=== PATIENT | male | born 1960 | race Caucasian/White ===

== ENCOUNTER 2016-11-16 07:57 | Day surgery (SDC) | payer OTHER ==
[2016-11-16 08:40] VITALS: BMI 20.2
[2016-11-16] MEDS ORDERED: Propofol 10 mg/ml Inj (20 ML) ONE (10:31)
[2016-11-16] MEDS ORDERED: Lidocaine Hydrochloride 5 ML INJ ONE (10:41)
[2016-11-16 11:28] VITALS: TEMP 99.2
[2016-11-16 11:38] VITALS: O2SAT 99
[2016-11-16 11:42] VITALS: BP 106/65; PULSE 65; RESP 15
== END 2016-11-16 11:51 | disposition home or self-care (01) ==
LOC: C.ENDO 07:57
PROVIDERS: ATTEND Internal Medicine Gastroenterology
DX: K63.3 Ulcer of intestine (principal); K64.8 Other hemorrhoids; K31.9 Disease of stomach and duodenum, unspecified; Z87.19 Personal history of other diseases of the digestive system; Z87.11 Personal history of peptic ulcer disease

== ENCOUNTER 2018-10-01 07:45 | Outpatient (CLI) | payer OTHER | END 2018-10-01 07:46 | disposition home or self-care (01) | LOC: C.RADH 07:45 | DX: M25.511 Pain in right shoulder (principal) ==

== ENCOUNTER 2018-10-21 07:17 | Emergency (ER) | payer OTHER ==
[2018-10-21 07:17] VITALS: BMI 21.9
[2018-10-21 07:50] VITALS: RESP 18
--- NOTE | 2018-10-21 07:57 | C.PDOC ---
History Of Present Illness 58 y/o male pt presents to the ER c/o persistent subjective fever for x5 days. Associated sx includes non-productive cough, chills and myalgia. Pt reports he saw his PMD and was given 500 mg amoxicillin TID x3 days with no relief. Pt denies dyspnea on exertion, chest pain, SOB and smoking. PERSIST SUBJ FEVER, COUGH X 5 DAYS. IMPROVES W TYLENOL 650 BUT RECURS. +CHILLS, MYALGIA. 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 SAW PMD, ON AMOXIL 500 TID X 3 DAYS BUT NO IMPROVE. NO JIMENEZ/CP, SOB. DENIES SMOKING EXAM NONTOXIC NARD LUNGS OCC RHONCHI SPEAKING FULL SENTENCES, NO RETRACT CV RRR REMAINDER NEG Time Seen by Provider: 10/21/18 07:26 History Per: Patient History/Exam Limitations: no limitations Onset/Duration Of Symptoms: Days (x5) Current Symptoms Are (Timing): Still Present Past Medical History Reviewed: Historical Data, Nursing Documentation, Vital Signs Vital Signs: Last Vital Signs Temp 99.4 F 10/21/18 07:46 Pulse 91 H 10/21/18 07:46 Resp 18 10/21/18 07:46 BP Pulse Ox 99 10/21/18 07:46 - Medical History PMH: Arthritis (BACK), Asthma, Bronchitis, Gastritis, Hypercholesterolemia Surgical History: Endoscopy Family History: States: No Known Family Hx - Social History Hx Alcohol Use: No Hx Substance Use: No - Immunization History Hx Tetanus Toxoid Vaccination: No Hx Influenza Vaccination: No Hx Pneumococcal Vaccination: No Review Of Systems Except As Marked, All Systems Reviewed And Found Negative. Constitutional: Positive for: Fever (subjective), Chills Cardiovascular: Negative for: Chest Pain Respiratory: Positive for: Cough (non-productive ). Negative for: Shortness of Breath, SOB with Excertion Musculoskeletal: Positive for: Other (myalgia) Physical Exam - Physical Exam Appears: Non-toxic, No Acute Distress Skin: Warm, Dry Head: Atraumatic, Normacephalic Eye(s): bilateral: Normal Inspection Nose: Normal Oral Mucosa: Moist Throat: Normal Cardiovascular: Rhythm Regular Respiratory: Rhonchi (occasional), Other (speaking in full sentences; no retr actions ) Gastrointestinal/Abdominal: Soft, No Tenderness Back: No CVA Tenderness Extremity: Normal ROM (x4) Neurological/Psych: Oriented x3, Normal Speech ED Course And Treatment - Laboratory Results Result Diagrams: 10/21/18 08:04 10/21/18 08:04 O2 Sat by Pulse Oximetry: 99 (RA) Pulse Ox Interpretation: Normal - Radiology CXR: Interpreted by Me CXR Interpretation: Yes: No Acute Disease Progress Note: Plans: -- chem labs. -- blood work. -- CXR. -- Tamiflu. -- IV fluids Progress - Data Reviewed Data Reviewed: Lab, Diagnostic imaging Disposition Counseled Patient/Family Regarding: Studies Performed, Diagnosis, Need For Followup, Rx Given - Disposition Referrals: YOUR,PMD [Other] Disposition: HOME/ ROUTINE Disposition Time: 09:30 Condition: IMPROVED Prescriptions: Oseltamivir Cap [Tamiflu] 75 mg PO BID #10 cap Instructions: Flu, Adult (DC) Forms: Work Excuse - Clinical Impression Clinical Impression: Influenza, Upper respiratory infection - Scribe Statement The provider has reviewed the documentation as recorded by the Scribe Isabelle Gomez Provider Attestation: All medical record entries made by the Scribe were at my direction and personally dictated by me. I have reviewed the chart and agree that the record accurately reflects my personal performance of the history, physical exam, medical decision making, and the department course for this patient. I have also personally directed, reviewed, and agree with the discharge instructions and disposition.
[2018-10-21 08:09] LABS: BASO % 1.1 % (0.0-2.0); EOS # 0.3 K/uL (0.0-0.7); EOS % 6.2 % (0.0-4.0); HEMOGLOBIN 13.5 g/dL (12.0-18.0); LYMPH # 1.1 K/uL (1.0-4.3); LYMPH % 26.8 % (20.0-40.0); MEAN CORPUSCULAR HEMOGLOBIN 28.8 pg (27.0-31.0); MEAN CORPUSCULAR HGB CONC 33.1 g/dL (33.0-37.0); MONO # 0.5 K/uL (0.0-0.8); NEUT # 2.3 K/uL (1.8-7.0); NEUT % 54.9 % (50.0-75.0); RBC 4.7 Mil/uL (4.40-5.90); RED CELL DISTRIBUTION WIDTH 13.9 % (11.5-14.5); WHITE BLOOD COUNT 4.2 K/uL (4.8-10.8)
[2018-10-21 08:21] LABS: MEAN CELL VOLUME 86.9 fL (80.0-94.0)
[2018-10-21 08:22] LABS: BLOOD UREA NITROGEN 16 mg/dL (9-20); CALCIUM 8.6 mg/dl (8.6-10.4); GFR NON-AFRICAN AMERICAN > 60
[2018-10-21] MEDS ORDERED: Sodium Chloride 0.9% 1,000 ML IV ONE (08:25)
[2018-10-21] MEDS ORDERED: Sodium Chloride 0.9% 500 ML IV ONE ×3 (08:34→08:36)
--- NOTE | 2018-10-21 08:48 | RAD ---
HISTORY: COUGH COMPARISON: None available. TECHNIQUE: Chest PA and lateral FINDINGS: LUNGS: No focal consolidation. Please note that chest x-ray has limited sensitivity for the detection of pulmonary masses. PLEURA: No significant pleural effusion identified. No definite pneumothorax . CARDIOVASCULAR: Heart size appears within normal limits. Atherosclerotic calcifications present. OSSEOUS STRUCTURES: Mild degenerative changes in wedge-shaped deformities noted of the thoracic spine. Kyphosis. VISUALIZED UPPER ABDOMEN: Unremarkable. OTHER FINDINGS: None. IMPRESSION: No focal consolidation.
[2018-10-21 08:53] VITALS: BP 122/76; PULSE 81; TEMP 100.1
[2018-10-21 09:33] VITALS: O2SAT 99
== END 2018-10-21 09:25 | disposition home or self-care (01) ==
LOC: C.ER 07:17
DX: J11.1 Influenza due to unidentified influenza virus with other respiratory manifestations (principal)
CPT/HCPCS: 71046; 80048; 85025; 87804; 99284; J7040